=== PATIENT | male | born 1960 | race Caucasian/White ===

== ENCOUNTER 2019-11-25 02:31 | Emergency (ER) | payer BC, OTHER ==
[~2019-11-25] VITALS: Ht 180.3 cm; Wt 85.0 kg
[2019-11-25 02:36] VITALS: BP 131/82
[2019-11-25] MEDS ORDERED: IBUPROFEN 800 MG TABLET ONE (02:48)
[2019-11-25] MEDS ORDERED: IBUPROFEN 800 MG TABLET PO ONE (03:00)
== END 2019-11-25 02:55 | disposition home or self-care (01) ==
LOC: ED 02:47
DX: M19.011 Primary osteoarthritis, right shoulder (principal); M25.511 Pain in right shoulder; F10.120 Alcohol abuse with intoxication, uncomplicated; Y90.0 Blood alcohol level of less than 20 mg/100 ml; F11.10 Opioid abuse, uncomplicated; Z72.9 Problem related to lifestyle, unspecified
CPT/HCPCS: 99283